=== PATIENT | female | born 1990 | race American Indian/Alaskan Native ===

== ENCOUNTER 2016-05-31 13:06 | Emergency (ER) | payer BC ==
[2016-05-31] MEDS ORDERED: ATIVAN ONE (13:30)
[2016-05-31] MEDS ORDERED: KEPPRA 1,000 MG/NS 0.75% 100ML 1,000 MG/100 ML BAG IV ONE ×2 (13:32→13:46)
[2016-05-31] MEDS ORDERED: NACL 0.9% 1000 ML 1,000 ML IV ONE (13:46)
[2016-05-31] MEDS ORDERED: ATIVAN IV ONE (13:46)
[2016-05-31 14:33] LABS: Basophils % (Auto) 0.7 % (0.0-1.8); Eosinophils % (Auto) 8.8 % (0.0-4.3); Hematocrit 35.9 % (30.3-42.9); Hemoglobin 11.5 gm/dl (10.1-14.3); Mean Corpuscular HGB Conc 32 % (30-34); Mean Corpuscular Hemoglobin 27 pg (28-32); Mean Corpuscular Volume 83 fl (79-97); Platelet Count 230 K/mm3 (140-440); Red Blood Count 4.33 M/mm3 (3.65-5.03); Red Cell Distribution Width 14.3 % (13.2-15.2)
[2016-05-31 14:36] LABS: Alanine Aminotransferase 9 units/L (7-56); Albumin 4.1 g/dL (3.9-5); Albumin/Globulin Ratio 1.5 %; Alkaline Phosphatase 63 units/L (35-129); Anion Gap 17 mmol/L; Bilirubin,Total < 0.2 mg/dL (0.1-1.2); Blood Urea Nitrogen 10 mg/dL (7-17); Calcium 8.9 mg/dL (8.4-10.2); Carbon Dioxide 21 mmol/L (22-30); Chloride 103.4 mmol/L (98-107); Glucose 101 mg/dL (65-100); Sodium 137 mmol/L (137-145); Total Protein 6.9 g/dL (6.3-8.2)
--- NOTE | 2016-05-31 15:02 | Cat Scan Report ---
FINAL REPORT EXAM: CT HEAD/BRAIN WO CON HISTORY: Seizure TECHNIQUE: CT imaging acquired through the head without intravenous contrast. Transaxial reformations are provided. PRIORS: None. FINDINGS: The ventricles, cisterns and sulci are normal. No intraparenchymal or extra-axial mass, hemorrhage, or mass effect. Moran and white-matter differentiation is normal. Normal spherical shape of the globes. Paranasal sinuses and mastoid air cells are clear. No skull or facial fracture visualized. IMPRESSION: No acute intracranial abnormality. Consider follow-up MRI as warranted.
--- NOTE | 2016-05-31 15:11 | Emergency Department Report ---
ED Seizure HPI - General Chief Complaint: Seizure Stated Complaint: SEIZURES Time Seen by Provider: 05/31/16 13:46 Source: EMS Mode of arrival: Stretcher Limitations: Other - History of Present Illness MD Complaint: seizure -: Sudden Description of Episode: loss of consciousness, other (no bowel or urinary incontinence) Witnessed:: Yes Trauma: No Seizure History: known seizure disorder, history of non-compliance Place: home Possible Precipitating Event: none Associated Symptoms: denies: chest pain, confusion, cough, diaphoresis, fever/ chills, loss of appetite, malaise, syncope, weakness, tongue injury, shoulder dislocation Treatments Prior to Arrival: benzodiazepines - Related Data Previous Rx's Medication Instructions Recorded Last Taken Type Acetaminophen/Codeine [Tylenol #3] 1 tab PO Q6H PRN #15 tab 01/27/15 Unknown Rx Bacitracin Zinc Oint [Antibiotic 1 applicatio TP BID #1 tube 01/27/15 Unknown Rx Oint] Cephalexin [Keflex] 500 mg PO Q12HR #14 cap 01/27/15 Unknown Rx Acetamin/Codeine 120-12Mg/5 ml 5 ml PO TID PRN #30 ml 02/05/15 Unknown Rx [Tylenol/Codeine] Albuterol Sulfate [Ventolin HFA] 1 puff IH Q4H PRN #1 hfa.aer.ad 02/05/15 Unknown Rx Azithromycin [Zithromax Z-KEVAN] 250 mg PO DAILY #6 tab 02/05/15 Unknown Rx Prednisone [predniSONE 5 mg (6-Day 5 mg PO .TAPER #1 tab.ds.pk 02/05/15 Unknown Rx Pack, 21 Tabs)] Doxycycline [Vibramycin CAP] 100 mg PO Q12HR #28 capsule 02/02/16 Unknown Rx Ibuprofen [Motrin] 600 mg PO Q8H PRN #20 tablet 02/02/16 Unknown Rx Nitrofurantoin [place]/M-Cryst 100 mg PO Q12HR #14 capsule 02/02/16 Unknown Rx [Macrobid CAP] metroNIDAZOLE [Flagyl TAB] 500 mg PO Q12HR #14 tab 02/02/16 Unknown Rx levETIRAcetam [Keppra TAB] 500 mg PO BID #60 tablet 05/31/16 Unknown Rx Allergies Allergy/AdvReac Type Severity Reaction Status Date / Time sea food Allergy Swelling Uncoded 02/02/16 03:18 ED Review of Systems ROS: Stated complaint: SEIZURES Other details as noted in HPI Comment: Unobtainable due to pts medical conditions ED Past Medical Hx - Past Medical History Hx Arthritis: Yes Hx Seizures: Yes (peptite mal) Hx Asthma: Yes Additional medical history: psuedoseizure - Social History Smoking Status: Never Smoker Substance Use Type: None - Medications Home Medications: Home Medications Medication Instructions Recorded Confirmed Last Taken Type Acetaminophen/Codeine [Tylenol #3] 1 tab PO Q6H PRN #15 tab 01/27/15 Unknown Rx Bacitracin Zinc Oint [Antibiotic 1 applicatio TP BID #1 tube 01/27/15 Unknown Rx Oint] Cephalexin [Keflex] 500 mg PO Q12HR #14 cap 01/27/15 Unknown Rx Acetamin/Codeine 120-12Mg/5 ml 5 ml PO TID PRN #30 ml 02/05/15 Unknown Rx [Tylenol/Codeine] Albuterol Sulfate [Ventolin HFA] 1 puff IH Q4H PRN #1 hfa.aer.ad 02/05/15 Unknown Rx Azithromycin [Zithromax Z-KEVAN] 250 mg PO DAILY #6 tab 02/05/15 Unknown Rx Prednisone [predniSONE 5 mg (6-Day 5 mg PO .TAPER #1 tab.ds.pk 02/05/15 Unknown Rx Pack, 21 Tabs)] Doxycycline [Vibramycin CAP] 100 mg PO Q12HR #28 capsule 02/02/16 Unknown Rx Ibuprofen [Motrin] 600 mg PO Q8H PRN #20 tablet 02/02/16 Unknown Rx Nitrofurantoin [place]/M-Cryst 100 mg PO Q12HR #14 capsule 02/02/16 Unknown Rx [Macrobid CAP] metroNIDAZOLE [Flagyl TAB] 500 mg PO Q12HR #14 tab 02/02/16 Unknown Rx levETIRAcetam [Keppra TAB] 500 mg PO BID #60 tablet 05/31/16 Unknown Rx ED Physical Exam - General Limitations: Other General appearance: obtunded, postictal - Head Head exam: Present: atraumatic, normocephalic - Eye Eye exam: Present: normal appearance, PERRL, EOMI - ENT ENT exam: Present: mucous membranes moist - Neck Neck exam: Present: normal inspection - Respiratory Respiratory exam: Present: normal lung sounds bilaterally. Absent: respiratory distress - Cardiovascular Cardiovascular Exam: Present: regular rate, normal rhythm. Absent: systolic murmur, diastolic murmur, rubs, gallop - GI/Abdominal GI/Abdominal exam: Present: soft, normal bowel sounds - Extremities Exam Extremities exam: Present: normal inspection - Back Exam Back exam: Present: normal inspection - Neurological Exam Neurological exam: Present: oriented X3, CN II-XII intact, motor sensory deficit , reflexes normal - Psychiatric Psychiatric exam: Present: normal affect, normal mood - Skin Skin exam: Present: warm, dry, intact, normal color. Absent: rash ED Course Vital Signs 05/31/16 05/31/16 05/31/16 13:37 13:40 13:50 Temperature Pulse Rate 80 74 Respiratory 19 21 Rate Blood Pressure 130/81 108/61 Blood Pressure [Left] O2 Sat by Pulse 99 97 99 Oximetry 05/31/16 05/31/16 05/31/16 13:53 14:00 14:10 Temperature 98.1 F Pulse Rate 84 74 75 Respiratory 18 17 17 Rate Blood Pressure 111/64 111/64 Blood Pressure 130/81 [Left] O2 Sat by Pulse 100 100 100 Oximetry 05/31/16 05/31/16 05/31/16 15:10 15:20 15:30 Temperature Pulse Rate 81 Respiratory 16 Rate Blood Pressure 122/55 137/97 128/78 Blood Pressure [Left] O2 Sat by Pulse 43 L 94 Oximetry 05/31/16 05/31/16 15:40 16:53 Temperature Pulse Rate 100 H Respiratory 16 Rate Blood Pressure 122/55 Blood Pressure 129/76 [Left] O2 Sat by Pulse 97 100 Oximetry ED Medical Decision Making - Lab Data Result diagrams: 05/31/16 13:54 05/31/16 13:54 - Medical Decision Making Patient awake and alert in the ER, able to eat. head CT negative , labs negative , will restart her on keppra and follow up with neurology. Repeat neuro exam is normal. Critical care attestation.: If time is entered above; I have spent that time in minutes in the direct care of this critically ill patient, excluding procedure time. ED Disposition Clinical Impression: Pseudoseizure Disposition: DISCHARGED TO HOME OR SELFCARE Is pt being admited?: No Does the pt Need Aspirin: No Condition: Good Instructions: Recurrent Seizures Adult (ED) Prescriptions: levETIRAcetam [Keppra TAB] 500 mg PO BID #60 tablet Referrals: PRIMARY CARE, [Primary Care Provider] - 3-5 Days Time of Disposition: 17:48
[2016-05-31] MEDS ORDERED: MOTRIN PO ONE (16:53)
[2016-05-31 19:05] VITALS: BP 119/71
== END 2016-05-31 19:30 | disposition home or self-care (01) ==
LOC: ED 13:06
DX: F44.5 Conversion disorder with seizures or convulsions (principal); M19.90 Unspecified osteoarthritis, unspecified site; J45.909 Unspecified asthma, uncomplicated; Z91.013 Allergy to seafood
CPT/HCPCS: 36415; 70450; 80053; 85025; 96365; 96366; 96375; 99284; J1953; J2060; J7030

== ENCOUNTER 2016-06-02 00:12 | Emergency (ER) | payer BC ==
[2016-06-02 01:11] VITALS: BP 104/56
[2016-06-02] MEDS ORDERED: ATIVAN PO ONE (01:28)
[2016-06-02] MEDS ORDERED: TYLENOL PO ONE (01:28)
--- NOTE | 2016-06-02 01:28 | Emergency Department Report ---
ED Seizure HPI - General Chief Complaint: Seizure Stated Complaint: SEIZURE Time Seen by Provider: 06/02/16 01:15 Source: patient, family, EMS Mode of arrival: Stretcher Limitations: No Limitations - History of Present Illness Initial Comments: This is a 25-year-old female brought in by EMS. She lives next to her grandmother who is also historian here. Grandmother states the patient was having shaking activity at home. Therefore she called for EMS. She states the shaking activity happens frequently when the patient is under stressful situations. Patient endorses stress due to having multiple jobs currently. Patient denies any family disputes her issues with boyfriend at this time. She states that she feels safe at home. She denies any physical or emotional abuse. Patient denies any specific pains at this time. She denies headache. She states that she has been treated with different antiepileptics in the past. She has never seen a neurologist. She has had CT brain performed before. She has never had EEG performed. She denies a specific psychiatric diagnosis though she does feel that she has depression/anxiety. Witnessed:: Yes Trauma: No - Related Data Previous Rx's Medication Instructions Recorded Last Taken Type Acetaminophen/Codeine [Tylenol #3] 1 tab PO Q6H PRN #15 tab 01/27/15 Unknown Rx Bacitracin Zinc Oint [Antibiotic 1 applicatio TP BID #1 tube 01/27/15 Unknown Rx Oint] Cephalexin [Keflex] 500 mg PO Q12HR #14 cap 01/27/15 Unknown Rx Acetamin/Codeine 120-12Mg/5 ml 5 ml PO TID PRN #30 ml 02/05/15 Unknown Rx [Tylenol/Codeine] Albuterol Sulfate [Ventolin HFA] 1 puff IH Q4H PRN #1 hfa.aer.ad 02/05/15 Unknown Rx Azithromycin [Zithromax Z-KEVAN] 250 mg PO DAILY #6 tab 02/05/15 Unknown Rx Prednisone [predniSONE 5 mg (6-Day 5 mg PO .TAPER #1 tab.ds.pk 02/05/15 Unknown Rx Pack, 21 Tabs)] Doxycycline [Vibramycin CAP] 100 mg PO Q12HR #28 capsule 02/02/16 Unknown Rx Ibuprofen [Motrin] 600 mg PO Q8H PRN #20 tablet 02/02/16 Unknown Rx Nitrofurantoin [place]/M-Cryst 100 mg PO Q12HR #14 capsule 02/02/16 Unknown Rx [Macrobid CAP] metroNIDAZOLE [Flagyl TAB] 500 mg PO Q12HR #14 tab 02/02/16 Unknown Rx levETIRAcetam [Keppra TAB] 500 mg PO BID #60 tablet 05/31/16 Unknown Rx Allergies Allergy/AdvReac Type Severity Reaction Status Date / Time sea food Allergy Swelling Uncoded 02/02/16 03:18 ED Review of Systems ROS: Stated complaint: SEIZURE Other details as noted in HPI Comment: All other systems reviewed and negative Constitutional: denies: chills, fever Eyes: denies: eye pain, eye discharge, vision change ENT: denies: ear pain, throat pain Respiratory: denies: cough, shortness of breath, wheezing Cardiovascular: denies: chest pain, palpitations Endocrine: no symptoms reported Gastrointestinal: denies: abdominal pain, nausea, diarrhea Genitourinary: denies: urgency, dysuria, discharge Musculoskeletal: denies: back pain, joint swelling, arthralgia Skin: denies: rash, lesions Neurological: other (shaking activity). denies: headache, weakness, paresthesias Psychiatric: denies: anxiety, depression Hematological/Lymphatic: denies: easy bleeding, easy bruising ED Past Medical Hx - Past Medical History Previous Medical History?: Yes Hx Arthritis: Yes Hx Seizures: Yes (peptite mal) Hx Asthma: Yes Additional medical history: psuedoseizure - Social History Smoking Status: Never Smoker Substance Use Type: None - Medications Home Medications: Home Medications Medication Instructions Recorded Confirmed Last Taken Type Acetaminophen/Codeine [Tylenol #3] 1 tab PO Q6H PRN #15 tab 01/27/15 Unknown Rx Bacitracin Zinc Oint [Antibiotic 1 applicatio TP BID #1 tube 01/27/15 Unknown Rx Oint] Cephalexin [Keflex] 500 mg PO Q12HR #14 cap 01/27/15 Unknown Rx Acetamin/Codeine 120-12Mg/5 ml 5 ml PO TID PRN #30 ml 02/05/15 Unknown Rx [Tylenol/Codeine] Albuterol Sulfate [Ventolin HFA] 1 puff IH Q4H PRN #1 hfa.aer.ad 02/05/15 Unknown Rx Azithromycin [Zithromax Z-KEVAN] 250 mg PO DAILY #6 tab 02/05/15 Unknown Rx Prednisone [predniSONE 5 mg (6-Day 5 mg PO .TAPER #1 tab.ds.pk 02/05/15 Unknown Rx Pack, 21 Tabs)] Doxycycline [Vibramycin CAP] 100 mg PO Q12HR #28 capsule 02/02/16 Unknown Rx Ibuprofen [Motrin] 600 mg PO Q8H PRN #20 tablet 02/02/16 Unknown Rx Nitrofurantoin [place]/M-Cryst 100 mg PO Q12HR #14 capsule 02/02/16 Unknown Rx [Macrobid CAP] metroNIDAZOLE [Flagyl TAB] 500 mg PO Q12HR #14 tab 02/02/16 Unknown Rx levETIRAcetam [Keppra TAB] 500 mg PO BID #60 tablet 05/31/16 Unknown Rx ED Physical Exam - General Limitations: No Limitations General appearance: alert, in no apparent distress, other (currently shaking in front of me with the tremors in the arms and the face.) - Head Head exam: Present: atraumatic, normocephalic - Eye Eye exam: Present: normal appearance, PERRL, EOMI. Absent: scleral icterus - ENT ENT exam: Present: normal exam, normal orophraynx, mucous membranes moist - Neck Neck exam: Present: normal inspection, full ROM. Absent: meningismus, lymphadenopathy - Respiratory Respiratory exam: Present: normal lung sounds bilaterally. Absent: respiratory distress, wheezes, rales - Cardiovascular Cardiovascular Exam: Present: regular rate, normal rhythm. Absent: systolic murmur, diastolic murmur, rubs, gallop - GI/Abdominal GI/Abdominal exam: Present: soft, normal bowel sounds. Absent: tenderness, guarding - Extremities Exam Extremities exam: Present: normal inspection. Absent: tenderness, pedal edema, calf tenderness - Back Exam Back exam: Present: normal inspection, full ROM. Absent: tenderness, CVA tenderness (R), CVA tenderness (L) - Neurological Exam Neurological exam: Present: alert, oriented X3, CN II-XII intact, normal gait, reflexes normal - Psychiatric Psychiatric exam: Present: normal affect, normal mood - Skin Skin exam: Present: warm, dry, intact, normal color. Absent: rash ED Course Vital Signs 06/02/16 01:02 Temperature 98.5 F Pulse Rate 78 Respiratory 18 Rate Blood Pressure 104/56 Blood Pressure 104/56 [Left] O2 Sat by Pulse 100 Oximetry - Reevaluation(s) Reevaluation #1: 06/02/16 19:19 Patient appears very comfortable to me. During my interview she continued to have some shaking tremors in her arms and face. These diminished when she was distracted. I did have long conversation with her and her grandmother regarding her condition. It seems very clear to me that these are pseudoseizures. I filled out that she has been poorly managed in the sense that she has not had any follow-up whatsoever. She's had numerous ED visits to different facilities and continues to be placed on different antiepileptics. I feel the underlying etiology is truly her depression/anxiety. I did give her referral for psychiatry. I do not feel there is need for inpatient stay at this time. She is denying any suicidal or homicidal ideations. She is fairly hypoxic functioning and that she is holding at least 3 jobs and performing an appropriate manner. Patient was given Ativan here. She did have resolution of her shaking after this. She does appear very calm at this time. She will be going home with her grandmother. Again appropriate referrals were given. Critical care attestation.: If time is entered above; I have spent that time in minutes in the direct care of this critically ill patient, excluding procedure time. ED Disposition Clinical Impression: Pseudoseizure Disposition: DISCHARGED TO HOME OR SELFCARE Is pt being admited?: No Does the pt Need Aspirin: No Condition: Stable Additional Instructions: Practicing healthy lifestyle. Use relaxation techniques when you are feeling like you are having a seizure come on. Get appropriate amount of sleep. There is no need for you to take your Keppra. Follow with psychiatric services for further therapy and help. They may choose to start you on some type of medication to help with some of your underlying depression/anxiety. Referrals: PRIMARY CARE, [Primary Care Provider] - 3-5 Days [facility] [Provider Group] - 3-5 Days [facility] [Provider Group] - 3-5 Days [facility] [Outside] - 3-5 Days Time of Disposition: 02:29
== END 2016-06-02 03:02 | disposition home or self-care (01) ==
LOC: ED 00:12
DX: R56.9 Unspecified convulsions (principal); M19.90 Unspecified osteoarthritis, unspecified site; J45.909 Unspecified asthma, uncomplicated; Z91.013 Allergy to seafood
CPT/HCPCS: 99283

== ENCOUNTER 2017-11-13 18:44 | Emergency (ER) | payer SELFPAY ==
--- NOTE | 2017-11-13 22:50 | Emergency Department Report ---
- General Chief complaint: Animal Bite Stated complaint: BED BUGS BITES Time Seen by Provider: 11/13/17 22:33 Source: patient, old records reviewed Mode of arrival: Ambulatory Limitations: No Limitations - History of Present Illness Initial comments: 27-year-old -[place] female presents to the ER complaint of bedbug bites. Patient ports that she was standing in a hotel for one night and had noticed that they had that bugs and has been bitten. Patient reports that she' s been applying topical Benadryl taken oral Benadryl daily without much relief. Patient ports she is allergic to shellfish currently takes no medications on a daily basis has a past medical history of seizures/pseudoseizures per medical records. MD complaint: rash -: days(s) (2) Location: back, LLE, RLE Severity: moderate Severity scale (0 -10): 3 Quality: other (itches) Consistency: intermittent Improves with: none Worsens with: none Associated symptoms: denies other symptoms Treatments Prior to Arrival: OTC topical medication, Benadryl - Related Data Previous Rx's Medication Instructions Recorded Last Taken Type Acetaminophen/Codeine [Tylenol #3] 1 tab PO Q6H PRN #15 tab 01/27/15 Unknown Rx Bacitracin Zinc Oint [Antibiotic 1 applicatio TP BID #1 tube 01/27/15 Unknown Rx Oint] cephALEXin [Keflex] 500 mg PO Q12HR #14 cap 01/27/15 Unknown Rx Acetamin/Codeine 120-12Mg/5 ml 5 ml PO TID PRN #30 ml 02/05/15 Unknown Rx [Tylenol/Codeine] Albuterol Sulfate [Ventolin HFA] 1 puff IH Q4H PRN #1 hfa.aer.ad 02/05/15 Unknown Rx Azithromycin [Zithromax Z-KEVNA] 250 mg PO DAILY #6 tab 02/05/15 Unknown Rx Prednisone [predniSONE 5 mg (6-Day 5 mg PO .TAPER #1 tab.ds.pk 02/05/15 Unknown Rx Pack, 21 Tabs)] Doxycycline [Vibramycin CAP] 100 mg PO Q12HR #28 capsule 02/02/16 Unknown Rx Ibuprofen [Motrin] 600 mg PO Q8H PRN #20 tablet 02/02/16 Unknown Rx Nitrofurantoin [place]/M-Cryst 100 mg PO Q12HR #14 capsule 02/02/16 Unknown Rx [Macrobid CAP] metroNIDAZOLE [Flagyl TAB] 500 mg PO Q12HR #14 tab 02/02/16 Unknown Rx levETIRAcetam [Keppra TAB] 500 mg PO BID #60 tablet 05/31/16 Unknown Rx Triamcinolone 0.1% [Kenalog 0.1% 1 applic TP TID #1 tube 11/13/17 Unknown Rx CREAM] Allergies Allergy/AdvReac Type Severity Reaction Status Date / Time sea food Allergy Swelling Uncoded 02/02/16 03:18 Abscess Boil HPI - HPI Chief Complaint: Animal Bite Stated Complaint: BED BUGS BITES Time Seen by Provider: 11/13/17 22:33 Home Medications: Previous Rx's Medication Instructions Recorded Last Taken Type Acetaminophen/Codeine [Tylenol #3] 1 tab PO Q6H PRN #15 tab 01/27/15 Unknown Rx Bacitracin Zinc Oint [Antibiotic 1 applicatio TP BID #1 tube 01/27/15 Unknown Rx Oint] cephALEXin [Keflex] 500 mg PO Q12HR #14 cap 01/27/15 Unknown Rx Acetamin/Codeine 120-12Mg/5 ml 5 ml PO TID PRN #30 ml 02/05/15 Unknown Rx [Tylenol/Codeine] Albuterol Sulfate [Ventolin HFA] 1 puff IH Q4H PRN #1 hfa.aer.ad 02/05/15 Unknown Rx Azithromycin [Zithromax Z-KEVAN] 250 mg PO DAILY #6 tab 02/05/15 Unknown Rx Prednisone [predniSONE 5 mg (6-Day 5 mg PO .TAPER #1 tab.ds.pk 02/05/15 Unknown Rx Pack, 21 Tabs)] Doxycycline [Vibramycin CAP] 100 mg PO Q12HR #28 capsule 02/02/16 Unknown Rx Ibuprofen [Motrin] 600 mg PO Q8H PRN #20 tablet 02/02/16 Unknown Rx Nitrofurantoin [place]/M-Cryst 100 mg PO Q12HR #14 capsule 02/02/16 Unknown Rx [Macrobid CAP] metroNIDAZOLE [Flagyl TAB] 500 mg PO Q12HR #14 tab 02/02/16 Unknown Rx levETIRAcetam [Keppra TAB] 500 mg PO BID #60 tablet 05/31/16 Unknown Rx Triamcinolone 0.1% [Kenalog 0.1% 1 applic TP TID #1 tube 11/13/17 Unknown Rx CREAM] Allergies/Adverse Reactions: Allergies Allergy/AdvReac Type Severity Reaction Status Date / Time sea food Allergy Swelling Uncoded 02/02/16 03:18 ED Review of Systems ROS: Stated complaint: BED BUGS BITES Other details as noted in HPI Comment: All other systems reviewed and negative ED Past Medical Hx - Past Medical History Hx Arthritis: Yes Hx Seizures: Yes (peptite mal) Hx Asthma: Yes Additional medical history: psuedoseizure - Surgical History Past Surgical History?: No - Social History Smoking Status: Never Smoker Substance Use Type: None - Medications Home Medications: Home Medications Medication Instructions Recorded Confirmed Last Taken Type Acetaminophen/Codeine [Tylenol #3] 1 tab PO Q6H PRN #15 tab 01/27/15 Unknown Rx Bacitracin Zinc Oint [Antibiotic 1 applicatio TP BID #1 tube 01/27/15 Unknown Rx Oint] cephALEXin [Keflex] 500 mg PO Q12HR #14 cap 01/27/15 Unknown Rx Acetamin/Codeine 120-12Mg/5 ml 5 ml PO TID PRN #30 ml 02/05/15 Unknown Rx [Tylenol/Codeine] Albuterol Sulfate [Ventolin HFA] 1 puff IH Q4H PRN #1 hfa.aer.ad 02/05/15 Unknown Rx Azithromycin [Zithromax Z-KEVAN] 250 mg PO DAILY #6 tab 02/05/15 Unknown Rx Prednisone [predniSONE 5 mg (6-Day 5 mg PO .TAPER #1 tab.ds.pk 02/05/15 Unknown Rx Pack, 21 Tabs)] Doxycycline [Vibramycin CAP] 100 mg PO Q12HR #28 capsule 02/02/16 Unknown Rx Ibuprofen [Motrin] 600 mg PO Q8H PRN #20 tablet 02/02/16 Unknown Rx Nitrofurantoin [place]/M-Cryst 100 mg PO Q12HR #14 capsule 02/02/16 Unknown Rx [Macrobid CAP] metroNIDAZOLE [Flagyl TAB] 500 mg PO Q12HR #14 tab 02/02/16 Unknown Rx levETIRAcetam [Keppra TAB] 500 mg PO BID #60 tablet 05/31/16 Unknown Rx Triamcinolone 0.1% [Kenalog 0.1% 1 applic TP TID #1 tube 11/13/17 Unknown Rx CREAM] ED Physical Exam - General Limitations: No Limitations General appearance: alert, in no apparent distress - Head Head exam: Present: atraumatic, normocephalic - Eye Eye exam: Present: EOMI - ENT ENT exam: Present: mucous membranes moist - Neurological Exam Neurological exam: Present: alert, oriented X3 - Psychiatric Psychiatric exam: Present: normal affect, normal mood - Expanded Skin Exam Expanded Type of lesion: Present: bite/sting Distribution of rash: chest, RLE, LLE Description of rash: Present: size (eraser size), erythematous ED Course Vital Signs 11/13/17 19:13 Temperature 98.9 F Pulse Rate 92 H Respiratory 16 Rate Blood Pressure 131/70 O2 Sat by Pulse 100 Oximetry ED Medical Decision Making - Medical Decision Making Patient has been evaluated by this provider fast track. We'll discharge patient on triamcinolone cream Critical care attestation.: If time is entered above; I have spent that time in minutes in the direct care of this critically ill patient, excluding procedure time. ED Disposition Clinical Impression: Bedbug bite Qualifiers: Encounter type: initial encounter Qualified Code(s): W57.XXXA - Bitten or stung by nonvenomous insect and other nonvenomous arthropods, initial encounter Disposition: - TO HOME OR SELFCARE Is pt being admited?: No Does the pt Need Aspirin: No Condition: Stable Additional Instructions: Please use topical steroid cream to bites. You can also take [id number] Claritin or Zyrtec's Prescriptions: Triamcinolone 0.1% [Kenalog 0.1% CREAM] 1 applic TP TID #1 tube Referrals: PRIMARY CARE,MD [Primary Care Provider] - 3-5 Days your,provider [Other] - 3-5 Days Forms: Work/School Release Form(ED)
[2017-11-13 23:08] VITALS: BP 130/68
== END 2017-11-13 23:08 | disposition home or self-care (01) ==
LOC: ED 18:44
DX: S80.862A Insect bite (nonvenomous), left lower leg, initial encounter (principal); S80.861A Insect bite (nonvenomous), right lower leg, initial encounter; M19.90 Unspecified osteoarthritis, unspecified site; J45.909 Unspecified asthma, uncomplicated; Z91.013 Allergy to seafood; W57.XXXA Bitten or stung by nonvenomous insect and other nonvenomous arthropods, initial encounter; Y93.89 Activity, other specified; Y92.89 Other specified places as the place of occurrence of the external cause; Y99.8 Other external cause status
CPT/HCPCS: 99282